=== PATIENT | female | born 1985 | race Caucasian/White ===

== ENCOUNTER → 2020-03-24 | Day surgery (SDC) | payer OTHER ==
[~2020-03-24] MED LIST: LACTATED RINGERS 1,000 ML IV ONE; LIDOCAINE 1% (10MG/ML) FOR IV START INTRADERMA ONE; MIDAZOLAM 2 MG/2 ML VIAL ONE; PROPOFOL 10 MG/ML 20 ML VIAL IV ONE; fentaNYL (PF) 50 MCG/ML 2 ML AMP ONE
[2020-03-24 10:45] VITALS: RESP 16; TEMP 97.2
--- NOTE | 2020-03-24 12:48 | P.PCN ---
Date of Procedure: 03/24/20 Procedure(s) Performed: BRIEF HISTORY: Patient is a 35-year-old pleasant white female scheduled for an elective colonoscopy as a part of evaluation of lower abdominal pain and diarrhea for the last several months duration. PROCEDURE PERFORMED: Colonoscopy with random biopsy. PREOPERATIVE DIAGNOSIS: Lower abdominal pain and diarrhea. IV sedation per Anesthesia. PROCEDURE: After informed consent was obtained, the patient, was brought into the endoscopy unit. IV sedation was administered by Anesthesia under continuous monitoring. Digital rectal examination was normal. Initially the Olympus CF-160 flexible video colonoscope was then inserted in the rectum, gradually advanced into the cecum without any difficulty. Careful examination was performed as the scope was gradually being withdrawn. Ileocecal valve and the appendiceal orifice were visualized and appeared normal. Terminal ileum was intubated and 20 cm visualized and appeared Prep was excellent. Mucosa of the cecum, ascending colon, transverse colon, descending colon, sigmoid colon, and rectum appeared normal. Biopsies were done from ascending and descending colon to rule out microscopic/collagenous colitis Retroflexion was performed in the rectum and no lesions were seen. The patient tolerated the procedure well. IMPRESSION: Normal-appearing colon from rectum to cecum with no evidence of colitis or colorectal neoplasia . RECOMMENDATIONS: Findings of this examination were discussed with the patient as a family. She was advised to follow with the biopsy results. She'll be seen in office in 2 weeks..
[2020-03-24 13:10] VITALS: BP 113/73; PULSE 80
== END ==
LOC: ORWHC2ENDO 10:12
PROVIDERS: ATTEND Internal Medicine Gastroenterology
DX: R10.30 Lower abdominal pain, unspecified (principal); R19.7 Diarrhea, unspecified; F17.210 Nicotine dependence, cigarettes, uncomplicated; K21.9 Gastro-esophageal reflux disease without esophagitis; Z98.890 Other specified postprocedural states; Z79.891 Long term (current) use of opiate analgesic; Z79.899 Other long term (current) drug therapy
CPT/HCPCS: 81025; 45380; J2250; J3010; J2704; 88305

== ENCOUNTER → 2020-08-09 | Outpatient (CLI) | payer OTHER ==
--- NOTE | 2020-08-09 14:06 | MR ---
EXAMINATION TYPE: MR knee RT wo con DATE OF EXAM: 08/09/2020 COMPARISON: None HISTORY: Right knee pain TECHNIQUE: Multiplanar, multisequence imaging of the right knee is performed without IV contrast. FINDINGS: MEDIAL MENISCUS: Anterior and posterior horns are intact without tear. LATERAL MENISCUS: Anterior and posterior horns are intact without tear. CRUCIATE LIGAMENTS: The anterior and posterior cruciate ligaments are intact and unremarkable. COLLATERAL LIGAMENTS: The medial collateral ligament and lateral collateral ligament complex are inta ct and unremarkable. EXTENSOR MECHANISM: Visualized quadriceps and patellar tendons are intact. EFFUSION: No significant suprapatellar joint effusion. POPLITEAL CYST: No popliteal/sheriff cyst. TRICOMPARTMENT SPACES: Intact CARTILAGE: Intact BONE MARROW SIGNAL: No focal abnormal marrow signal is appreciated. OTHER: No additional significant abnormality is appreciated. IMPRESSION: No MR evidence to suggest internal derangement.
== END | disposition home or self-care (01) ==
LOC: RADMRIMAIN 13:09
PROVIDERS: ATTEND Orthopaedic Surgery
DX: M25.561 Pain in right knee (principal)

== ENCOUNTER 2022-03-07 16:59 | Emergency (ER) | payer OTHER ==
[2022-03-07 17:04] VITALS: RESP 18
[2022-03-07] MEDS ORDERED: ACETAMINOPHEN TAB 325 MG TAB PO STA (17:30)
[2022-03-07] MEDS ORDERED: IBUPROFEN 600 MG TAB PO STA (17:31)
[2022-03-07] MEDS ORDERED: SODIUM CHLORIDE 0.9% 500 ML 500 ML IV STA ×2 (17:31→17:32)
[2022-03-07] MEDS ORDERED: ONDANSETRON 4 MG/2 ML VIAL IVP STA (17:31)
--- NOTE | 2022-03-07 17:33 | ED ---
General Adult HPI - General Chief complaint: Fever Stated complaint: COVID+ Time Seen by Provider: 03/07/22 17:02 Source: patient, EMS, RN notes reviewed Mode of arrival: EMS Limitations: no limitations - History of Present Illness Initial comments: Patient is a pleasant 37-year-old female presenting to the emergency department with concerns with fever. Onset was today. Patient took a COVID-19 test at home and was positive. Patient complains of fatigue and myalgias. Patient has lack of energy and did vomit one time. No dyspnea. No cough. No abdominal pain. No diarrhea. Patient does have mild headache. Patient denies sore throat. Patient received 10 mL of Tylenol children's elixir by EMS. This was confirmed by nursing staff. - Related Data Home Medications Medication Instructions Recorded Confirmed Amitriptyline HCl 25 mg PO HS 03/24/20 03/24/20 Cholecalciferol (Vitamin D3) 125 mcg PO WEEKLY 03/24/20 03/24/20 [Vitamin D3] HYDROcodone/APAP 10-325MG [[place] 1 tab PO Q6HR PRN 03/24/20 03/24/20 10-325] busPIRone HCL 30 mg PO BID 03/24/20 03/24/20 raNITIdine HCL [Zantac] 300 mg PO BID 03/24/20 03/24/20 Previous Rx's Medication Instructions Recorded Calcium Carb-Vit D 500Mg-5Mcg 1 each PO TID #30 tablet 03/07/22 [Oscal 500+D 5 Mcg (200 Iu)] Nirmatrelvir/Ritonavir [Paxlovid 2 each PO BID #20 tab 03/07/22 2X150 mg-100 mg (Eua)] Allergies Allergy/AdvReac Type Severity Reaction Status Date / Time No Known Allergies Allergy Verified 03/07/22 17:04 Review of Systems ROS Statement: Those systems with pertinent positive or pertinent negative responses have been documented in the HPI. ROS Other: All systems not noted in ROS Statement are negative. Constitutional: Reports: as per HPI, fever, chills Eyes: Denies: eye pain ENT: Denies: ear pain Respiratory: Denies: cough Cardiovascular: Denies: chest pain Endocrine: Reports: fatigue Gastrointestinal: Reports: vomiting. Denies: abdominal pain Genitourinary: Denies: dysuria Musculoskeletal: Denies: back pain Skin: Denies: rash Neurological: Reports: as per HPI, headache Past Medical History Additional Past Medical History / Comment(s): lesions on her brain, lupus History of Any Multi-Drug Resistant Organisms: None Reported Past Surgical History: No Surgical Hx Reported Smoking Status: Vaper Past Alcohol Use History: None Reported Past Drug Use History: None Reported General Exam Limitations: no limitations General appearance: alert Head exam: Present: normocephalic Eye exam: Present: normal appearance Neck exam: Present: normal inspection Respiratory exam: Present: normal lung sounds bilaterally Cardiovascular Exam: Present: regular rate, normal rhythm GI/Abdominal exam: Present: soft. Absent: distended, tenderness Extremities exam: Present: normal inspection Neurological exam: Present: alert Psychiatric exam: Present: normal affect, normal mood Skin exam: Present: normal color Course Vital Signs 03/07/22 03/07/22 03/07/22 17:00 18:44 19:29 Temperature 103 F H 101.6 F H 100.9 F H Pulse Rate 102 H Respiratory 18 Rate Blood Pressure 109/69 O2 Sat by Pulse 97 Oximetry Medical Decision Making - Medical Decision Making Patient reevaluated. Patient and family updated on results and plan for admission secondary to critically low calcium level. Family does encourage gladis ent to stay however patient refuses. Patient states she has been at specialty hospitals for this and they have evaluated and this is a known previous problem. Patient advised to stay however she refuses. Patient does them straight medical decision making and family agrees patient is capable of making her own decision. Patient is advised to take calcium supplements until follow-up with her doctor or otherwise advised. Patient is agreeable to this. - Lab Data Result diagrams: 03/07/22 19:18 03/07/22 17:53 Lab Results 03/07/22 03/07/22 Range/Units 17:53 19:18 WBC 2.6 L (3.8-10.6) k/uL RBC 4.28 (3.80-5.40) m/uL Hgb 12.4 (11.4-16.0) gm/dL Hct 37.9 (34.0-46.0) % MCV 88.6 (80.0-100.0) fL MCH 29.1 (25.0-35.0) pg MCHC 32.8 (31.0-37.0) g/dL RDW 12.0 (11.5-15.5) % Plt Count 232 (150-450) k/uL MPV 7.3 Neutrophils % 77 % Lymphocytes % 9 % Monocytes % 10 % Eosinophils % 1 % Basophils % 2 % Neutrophils # 2.0 (1.3-7.7) k/uL Lymphocytes # 0.2 L (1.0-4.8) k/uL Monocytes # 0.3 (0-1.0) k/uL Eosinophils # 0.0 (0-0.7) k/uL Basophils # 0.1 (0-0.2) k/uL Sodium 143 (137-145) mmol/L Potassium 3.5 (3.5-5.1) mmol/L Chloride 112 H (98-107) mmol/L Carbon Dioxide 16 L (22-30) mmol/L Anion Gap 15 mmol/L BUN 6 L (7-17) mg/dL Creatinine 0.56 (0.52-1.04) mg/dL Est GFR (CKD-EPI)AfAm >90 (>60 ml/min/1.73 sqM) Est GFR (CKD-EPI)NonAf >90 (>60 ml/min/1.73 sqM) Glucose 81 (74-99) mg/dL Calcium 6.4 L* (8.4-10.2) mg/dL Magnesium 1.5 L (1.6-2.3) mg/dL Total Bilirubin 0.6 (0.2-1.3) mg/dL AST 26 (14-36) U/L ALT 12 (4-34) U/L Alkaline Phosphatase 31 L (38-126) U/L Lactate Dehydrogenase 853 H (313-618) U/L C-Reactive Protein 1.1 H (<1.0) mg/dL Total Protein 5.3 L (6.3-8.2) g/dL Albumin 3.1 L (3.5-5.0) g/dL - Radiology Data Radiology results: image reviewed (Chest x-ray shows atelectasis versus developing infiltrate.) Disposition Clinical Impression: Hypocalcemia, COVID-19 Disposition: Left Against Medical Advice Instructions (If sedation given, give patient instructions): Fever in Adults (ED), Hypocalcemia (ED), COVID-19 (Coronavirus Disease 2019) (ED) Additional Instructions: Prescription sent to pharmacy. Please do follow-up with your primary care physician tomorrow. Have primary care physician review up to date regarding c alcium intake. Return for palpitations, heart rhythm problems, muscle weakness, worsening or change in symptoms or any other concerns. [id number] Tylenol or Motrin as needed. Prescriptions: Calcium Carb-Vit D 500Mg-5Mcg [Oscal 500+D 5 Mcg (200 Iu)] 1 each PO TID #30 tablet Nirmatrelvir/Ritonavir [Paxlovid 2X150 mg-100 mg (Eua)] 2 each PO BID #20 tab Is patient prescribed a controlled substance at d/c from ED?: No Referrals: Conner Ibanez DO [Primary Care Provider] - 1-2 days Time of Disposition: 20:14
[2022-03-07 18:52] LABS: ALT 12 U/L (4-34); African American GFR (CKD) >90 (>60 ml/min/1.73 sqM); Anion Gap 15 mmol/L; Blood Urea Nitrogen 6 mg/dL (7-17); C Reactive Protein 1.1 mg/dL (<1.0); Carbon Dioxide 16 mmol/L (22-30); Chloride 112 mmol/L (98-107); Glucose 81 mg/dL (74-99); LDH 853 U/L (313-618); Non-African American GFR(CKD) >90 (>60 ml/min/1.73 sqM); Sodium 143 mmol/L (137-145); Total Bilirubin 0.6 mg/dL (0.2-1.3)
--- NOTE | 2022-03-07 19:03 | XR ---
EXAMINATION TYPE: XR chest 1V portable DATE OF EXAM: 03/07/2022 COMPARISON: NONE HISTORY: Headache and fever. TECHNIQUE: Single frontal view of the chest is obtained. FINDINGS: There is diffuse mild hazy opacity. No pleural effusion, or pneumothorax seen. The cardia c silhouette size is within normal limits. The osseous structures are intact. IMPRESSION: Mild atelectasis versus developing infiltrate.
[2022-03-07 19:04] LABS: Albumin 3.1 g/dL (3.5-5.0); Calcium 6.4 mg/dL (8.4-10.2); Total Protein 5.3 g/dL (6.3-8.2)
[2022-03-07 19:05] LABS: AST 26 U/L (14-36); Alkaline Phosphatase 31 U/L (38-126); Magnesium 1.5 mg/dL (1.6-2.3); Potassium 3.5 mmol/L (3.5-5.1)
[2022-03-07] MEDS ORDERED: CALCIUM CARB-VIT D 500 MG-5 MCG TAB PO STA (19:11)
[2022-03-07] MEDS ORDERED: MAGNESIUM OXIDE 400 MG TAB PO STA (19:11)
[2022-03-07 19:25] LABS: Basophils # (A) 0.1 k/uL (0-0.2); Basophils % (A) 2 %; Eosinophils % (A) 1 %; HCT 37.9 % (34.0-46.0); HGB 12.4 gm/dL (11.4-16.0); Lymphocytes # (A) 0.2 k/uL (1.0-4.8); Lymphocytes % (A) 9 %; MCH 29.1 pg (25.0-35.0); MCHC 32.8 g/dL (31.0-37.0); MCV 88.6 fL (80.0-100.0); Mean Platelet Volume 7.3; Monocytes # (A) 0.3 k/uL (0-1.0); Monocytes % (A) 10 %; Neutrophils % (A) 77 %; Platelet Count 232 k/uL (150-450); RBC 4.28 m/uL (3.80-5.40); WBC 2.6 k/uL (3.8-10.6)
[2022-03-07] MEDS ORDERED: CALCIUM GLUCONATE IN NACL 1 GM in SALINE 1 100ML.BAG IVPB ONE (20:30)
[2022-03-07 21:33] VITALS: BP 100/51; PULSE 66; TEMP 99
[2022-03-08 02:57] LABS: Ferritin 50.1 ng/mL (10.0-291.0)
== END 2022-03-07 21:33 | disposition left against medical advice (07) ==
LOC: EC 16:59
DX: U07.1 COVID-19 (principal); E83.51 Hypocalcemia; F17.209 Nicotine dependence, unspecified, with unspecified nicotine-induced disorders
CPT/HCPCS: 36415; 80053; 82728; 83615; 83735; 85025; 86140; 84145; 71045; 99284; 96365; 96361; 96375; J2405; J0610